=== PATIENT | male | born 1960 | race Hispanic/Latino ===

== ENCOUNTER → 2019-09-19 | Outpatient (CLI) | payer OTHER ==
--- NOTE | 2019-09-20 15:18 | Diagnostic Imaging Report ---
TECHNIQUE: Magnetic resonance imaging of the LEFT KNEE was performed WITHOUT injected contrast. HISTORY: Left knee pain COMPARISON: None available. FINDINGS: LIGAMENTS AND TENDONS: ACL: Intact PCL: Intact Collateral ligaments: Intact Iliotibial band: Unremarkable Popliteal tendon: Intact Extensor mechanism: Intact JOINT: Menisci: Medial: Degenerative signal without tear. Lateral: Complex tearing predominantly involving the anterior horn and body Articular Cartilage: Medial Compartment: Partial-thickness cartilage loss Lateral Compartment: Partial-thickness cartilage loss Patellofemoral Compartment: Partial-thickness cartilage loss Joint Fluid: Trace joint effusion. BONE: Scattered areas of subchondral edema. No acute fracture. SOFT TISSUES: Otherwise, unremarkable. IMPRESSION: Lateral meniscus complex tearing. Tricompartmental partial-thickness cartilage loss with areas of subchondral edema Signed by: Dr. Juanjo Brock M.D. on 09/20/2019 3:15 PM
== END ==
LOC: MRI 08:38
PROVIDERS: ATTEND Specialist
DX: M23.92 Unspecified internal derangement of left knee (principal)

== ENCOUNTER → 2019-11-25 | Day surgery (SDC) | payer OTHER ==
[~2019-11-25] MED LIST: AMLODIPINE-BEN1 EAC5 PO; CEFAZOLIN SOD 1 GM/NS 50ML 50 ML IV ONE; DEXAMETHASONE SOD PHOS INJ 4 MG/ML VIAL ONE; FENTANYL CITRATE/PF 100MCG/2 ML INJ ONE; KETOROLAC TROMETHAMINE 30 MG/ML VIAL ONE; LIDOCAINE HCL 2% LOCAL INJ 5 ML SDV VIAL INJ ONE; MIDAZOLAM HCL 2 MG/2 ML VIAL ONE; ONDANSETRON HCL INJ 2MG/ML 2ML 2 MG/ML VIAL ONE; PROPOFOL IV EMULSION 10 MG/ML 20 ML VIAL ONE; ROSUVASTATIN CA10 MG PO; SEVOFLURANE INHAL SOLN 250 ML PEN BTL ONE
--- NOTE | 2019-11-25 08:49 | Operative Report ---
DATE OF PROCEDURE: 11/25/2019 SURGEON: William Gonzalez MD FOOD AIDE: Rafi Morrow PA-C PREOPERATIVE DIAGNOSIS: Left knee lateral meniscal tear. POSTOPERATIVE DIAGNOSES: 1. Left knee lateral meniscal tear. 2. Grade 3 chondromalacia of the medial femoral condyle. PROCEDURE: Left knee arthroscopy, partial lateral meniscectomy, chondroplasty of the medial femoral condyle. INDICATIONS: The patient is a 59-year-old gentleman, who has clinic signs and symptoms consistent with lateral meniscal tear in his left knee. He has failed conservative management and would like to proceed with arthroscopy. The risks and benefits have been explained. The signs of early arthritis in his left knee have been discussed. The likelihood of some persistent discomfort has been explained. The patient states he understands and wishes to proceed. PROCEDURE IN DETAIL: The patient was brought to the operating room and placed under general anesthetic. His left lower extremity was prepped and draped in a sterile manner. A preoperative time-out was performed. The extremity was exsanguinated and a proximal tourniquet was briefly inflated to 300 mmHg. Standard arthroscopy portals were established. The knee was insufflated with sterile saline and systematically inspected. There was mild synovitis in the suprapatellar pouch. There were signs of grade 2 chondromalacia in the trochlear groove. The medial compartment was inspected and probed. The meniscus was unremarkable, but there were signs of grade 2 to grade 3 chondromalacia of the weightbearing surface of the medial femoral condyle. There were unstable margins. A mechanical shaver was introduced into the joint to perform gentle chondroplasty. The unstable margins were debrided back to hook stable rims. The cruciate ligaments were inspected and were unremarkable. The lateral compartment was inspected. There was a complex tear of the lateral meniscus. A partial lateral meniscectomy was performed. Of note, the entire anterior horn of the lateral meniscus was absent. He ended up having a subtotal lateral meniscectomy. Gentle chondroplasty of the lateral femoral condyle was also performed. The medial and lateral gutters were inspected. There was a notable lateral osteophyte in the lateral compartment. The knee was thoroughly irrigated with sterile saline. The arthroscopic instruments were removed. The portal incisions were closed with nylon stitches. A sterile bandage was applied. The patient was extubated and transported to the recovery room in stable condition. William Gonzalez MD DR/MARGOTH /[id number]
[2019-11-25 09:15] VITALS: BP 140/70
== END | disposition home or self-care (01) ==
LOC: OR 05:16
PROVIDERS: ATTEND Specialist
DX: S83.272A Complex tear of lateral meniscus, current injury, left knee, initial encounter (principal); M94.262 Chondromalacia, left knee; M65.9 Synovitis and tenosynovitis, unspecified; M25.762 Osteophyte, left knee; I10 Essential (primary) hypertension; E78.5 Hyperlipidemia, unspecified; K21.9 Gastro-esophageal reflux disease without esophagitis; X58.XXXA Exposure to other specified factors, initial encounter; Z91.013 Allergy to seafood; Z01.810 Encounter for preprocedural cardiovascular examination; Z01.812 Encounter for preprocedural laboratory examination; Z11.59 Encounter for screening for other viral diseases
CPT/HCPCS: 87635; 93005; J0690; J1100; J1885; J2001; J2250; J2405; J3010